=== PATIENT | female | born 1980 | race Caucasian/White ===

== ENCOUNTER 2018-01-05 10:47 | Emergency (ER) | payer OTHER ==
[2018-01-05 11:11] VITALS: BP 143/103
--- NOTE | 2018-01-05 12:30 | UC ---
Rectal Pain HPI - History Of Current Complaint Chief Complaint: UCGeneralIllness Stated Complaint: ANXIETY/PANIC ATTACK Time Seen by Provider: 01/05/18 11:55 Hx Last Menstrual Period: 12/17/17 Pain Intensity: 0 - Allergies/Home Medications Allergies/Adverse Reactions: Allergies Allergy/AdvReac Type Severity Reaction Status Date / Time No Known Allergies Allergy Verified 01/05/18 11:02 Home Medications: Home Medications Cyclobenzaprine TAB* [Flexeril 10 MG TAB*] 10 mg PO TID PRN 01/05/18 [History Confirmed 01/05/18] PMH/Surg Hx/FS Hx/Imm Hx Other History Of: Negative For: HIV, Hepatitis B, Hepatitis C - Surgical History Surgical History: Yes Surgery Procedure, Year, and Place: LITHOTRYPSY--KIDNEY STONE Other Surgical History: Kidney stone removed. - Family History Known Family History: Positive: None - Social History Alcohol Use: Rare Substance Use Type: Prescribed Smoking Status (MU): Light Every Day Tobacco Smoker Type: Cigarettes Amount Used/How Often: 5 cigarettes daily Length of Time of Smoking/Using Tobacco: 3 YRS Physical Exam Vital Signs: Initial Vital Signs Temp 98.5 F 01/05/18 11:03 Pulse 110 01/05/18 11:03 Resp 22 01/05/18 11:03 BP 143/103 01/05/18 11:03 Pulse Ox 97 01/05/18 11:03 Discharge - Sign-Out/Discharge Documenting (check all that apply): Discharge/Admit/Transfer - Discharge Plan Condition: Stable Disposition: HOME Referrals: ROCHELLE Cristina [Primary Care Provider] - - Billing Disposition and Condition Condition: STABLE Disposition: HOME
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
== END 2018-01-05 12:55 | disposition home or self-care (01) ==
LOC: UCCORT 10:47
DX: F41.9 Anxiety disorder, unspecified (principal); F17.210 Nicotine dependence, cigarettes, uncomplicated
CPT/HCPCS: 99212; G0463